=== PATIENT | female | born 1980 | race Caucasian/White ===

== ENCOUNTER 2018-06-13 16:23 | Emergency (ER) | payer SELFPAY ==
[~2018-06-13] VITALS: Ht 162.6 cm; Wt 52.9 kg
[2018-06-13 16:32] VITALS: Ht 162.6 cm; Wt 52.9 kg
[2018-06-13] MEDS ORDERED: KETOROLAC 30 MG INJ IV STA (17:07)
[2018-06-13] MEDS ORDERED: SOD CHLORIDE 0.9% 500 ML IV STA (17:07)
[2018-06-13] MEDS ORDERED: METOCLOPRAMIDE 10 MG INJ IV STA (17:07)
[2018-06-13] MEDS ORDERED: IBUP-1542 PO (20:38)
[2018-06-13 20:43] VITALS: BP 113/69; PULSE 66; RESP 20
--- NOTE | 2018-06-14 00:59 | ERD ---
ER Documentation Chief Complaint Chief Complaint R side of whole body numbness since AM; awake, a/ox4, ambulatory HPI 37-year-old female presenting with complaints of right-sided headache with left arm tingling since early this morning. Patient does state that once a month she gets similar headaches which are located always on the right side of her head that are aching, nonradiating, gradual in onset, with associated left arm tingling. She states that this feels exactly the same as previous headaches. She has been evaluated for these headaches before and told that she did not have any significant abnormalities on workup. She has never been diagnosed with migraines. However she does complain of noises making her headache worse. She denies any photophobia, nausea, vomiting, focal weakness or any other areas of numbness. No associated neck pain or stiffness. No fevers or chills. Patient did not try to take any medications prior to arrival. She states that she is not concerned about anything specifically but just wants her pain to improve. ROS All systems reviewed and are negative except as per history of present illness. Medications Home Meds Active Scripts Ibuprofen* (Motrin*) 600 Mg Tab, 600 MG PO Q6H PRN for PAIN AND OR ELEVATED TEMP, #30 TAB Prov:PETE MCNEAL MD 06/13/18 Allergies Allergies: Coded Allergies: No Known Allergy (Unverified , 06/13/18) PMhx/Soc Medical and Surgical Hx: pt denies Surgical Hx Hx Miscellaneous Medical Probl: Yes (Frequent headaches) Hx Alcohol Use: No Hx Substance Use: No Hx Tobacco Use: No Smoking Status: Never smoker FmHx Family History: No diabetes Physical Exam Vitals Vital Signs Date Temp Pulse Resp B/P (MAP) Pulse Ox O2 O2 Flow FiO2 Time Delivery Rate 06/13/18 97.7 66 20 113/69 100 Room Air 20:43 (84) 06/13/18 97.7 57 20 99/57 (71) 100 Room Air 18:24 06/13/18 97.7 72 20 134/72 100 16:32 (92) Physical Exam Const: No acute distress Head: Atraumatic Eyes: Small right subconjunctival hemorrhage noted in the medial aspect of the eye. Otherwise no conjunctival injection bilaterally. PERRLA, EOMI, no nystagmus. ENT: Normal External Ears, Nose and Mouth. Neck: Full range of motion. No meningismus. Resp: Clear to auscultation bilaterally Cardio: Regular rate and rhythm, no murmurs. 2+ distal pulses in all 4 extremities Abd: Soft, non tender, non distended. Normal bowel sounds Skin: No petechiae or rashes Back: No midline or flank tenderness Ext: No cyanosis, or edema Neur: Awake and alert, oriented x3, cranial nerves intact, no dysarthria, strength and sensations intact in all 4 extremities. Normal gait. Psych: Normal Mood and Affect Results 24 hrs Laboratory Tests Test 06/13/18 17:03 06/13/18 17:09 06/13/18 17:10 Bedside Glucose 102 mg/dL Bedside Urine pH (LAB) 5.5 Bedside Urine Protein (LAB) Negative Bedside Urine Glucose (UA) Negative Bedside Urine Ketones (LAB) 1+ Bedside Urine Blood 2+ Bedside Urine Nitrite (LAB) Negative Bedside Urine Leukocyte Esterase (L Negative POC Beta HCG, Qualitative NEGATIVE Current Medications Medications Dose Sig/Katarzyna Start Time Status Last (Trade) Ordered Route PRN Stop Time Admin Dose Reason Admin Sodium 500 ml @ Q1H STAT 06/13/18 DC 06/13/18 Chloride 500 mls/hr IV 17:07 17:34 06/13/18 18:06 10 mg ONCE STAT 06/13/18 DC 06/13/18 Metoclopramid IV 17:07 17:34 e HCl 06/13/18 17:08 (Reglan) Ketorolac 30 mg ONCE STAT 06/13/18 DC 06/13/18 Tromethamine IV 17:07 17:35 (Toradol) 06/13/18 17:08 Procedures/MDM Patient is presenting with likely primary headache, similar to her previous headaches with similar left-sided arm paresthesias. Vitals were unremarkable. Considered subarachnoid hemorrhage, cervical artery dissection, meningitis, temporal arteritis, acute glaucoma, venous thrombosis or carbon monoxide poisoning but less likely based on history, physical and overall well appearance. Patient treated with IV Reglan, Toradol. Upon reassessment, patients symptoms have significantly improved. There is no evidence of meningitis, intracranial bleed, seizure, stroke. Patient is stable for discharge with analgesics and continued outpatient follow up with PCP. Patient's blood pressure was elevated (>120/80) but appears stable without evidence of hypertension emergency or urgency. The patient was counseled about the risks of hypertension and urged to pursue outpatient monitoring and therapy within a week with their primary care physician. Departure Diagnosis: Primary Impression: Headache, migraine Migraine type: unspecified Status migrainosus presence: without status migrainosus Intractability: not intractable Qualified Codes: G43.909 - Migraine, unspecified, not intractable, without status migrainosus Condition: Stable Patient Instructions: Headache, Migraine (Classical) PETE MCNEAL MD Jun 14, 2018 00:59
== END 2018-06-13 20:44 | disposition home or self-care (01) ==
LOC: E/R 16:23
DX: G43.909 Migraine, unspecified, not intractable, without status migrainosus (principal)
CPT/HCPCS: 81003; 81025; 82962; 96374; 96375; 99284; J1885; J2765; J7040